=== PATIENT | male | born 1975 | race Caucasian/White ===

== ENCOUNTER 2016-07-15 15:36 | Emergency (ER) | payer MEDICARE, SELFPAY ==
[~2016-07-15 15:36] MED LIST: BUSPIRONE HCL30 MG PO; COLACE100 MG PO; CORTISPORIN-TC10 ML OT; FENOFIBRATE48 MG PO; HYDROCODON-ACE1 EAC4 PO; HYDROCODON-ACE1 EAC6 PO; KLONOPIN0.5 MG PO; NEURONTIN600 MG PO; NEURONTIN800 MG PO; NICODERM 14MG PA1 EA TD; NICODERM 21MG PA1 EA TD; OXYCODON-ACETA1 EAC1 PO; PANTOPRAZOLE SO40 MG PO; SAPHRIS10 MG SL; VALIUM5 MG PO; ZOLOFT100 MG PO
== END 2016-07-15 16:42 | disposition home or self-care (01) ==
LOC: ER 15:36
DX: M54.9 Dorsalgia, unspecified (principal); G89.29 Other chronic pain; I10 Essential (primary) hypertension; F17.210 Nicotine dependence, cigarettes, uncomplicated; Z79.899 Other long term (current) drug therapy
CPT/HCPCS: 72072; 72100; 96372; 99283; 99283-25